=== PATIENT | male | born 1950 | race Caucasian/White ===

== ENCOUNTER → 2020-06-04 13:53 | Outpatient (BNVA) | payer MEDICARE, OTHER, SELFPAY | PROVIDERS: Visit Provider Nurse Practitioner Family | DX: Z20.828 Contact with and (suspected) exposure to other viral communicable diseases (principal); U07.1 COVID-19 | CPT/HCPCS: 87635 ==

== ENCOUNTER → 2020-07-01 15:32 | Outpatient (BNVA) | payer MEDICARE, OTHER, SELFPAY | PROVIDERS: Visit Provider Registered Nurse | DX: I10 Essential (primary) hypertension (principal); E78.5 Hyperlipidemia, unspecified; Z00.00 Encounter for general adult medical examination without abnormal findings | CPT/HCPCS: 80053; 80061; 85025 ==

== ENCOUNTER 2020-08-03 10:33 | Outpatient (CLI) | payer MEDICARE, OTHER, SELFPAY ==
--- NOTE | 2020-08-03 11:00 | US_ITS ---
WS: [id number] ULTRASOUND ABDOMEN CLINICAL INFORMATION: K74.60 - Unspecified cirrhosis of liver COMPARISON: None. FINDINGS: Liver Size: Normal. Craniocaudal length: 14.3 cm. Echogenicity: Coarse Surface nodularity: None. Mass (size and location): None. Bile ducts Intrahepatic ducts: Normal. Common bile duct diameter: 0.4 cm. Gallbladder Normal. Gallstones: None. Gallbladder sludge: None. Gallbladder wall thickening: None. Pericholecystic fluid: None. Sonographic Maddox sign: Absent. Pancreas Not well visualized Right kidney: Normal. Hydronephrosis: None. Size: 10.1 cm x 5.2 cm x 5.5 cm Abdominal aorta and IVC Visualized portions are normal. Ascites: None. US/US liver [id number] IMPRESSION: 1. Diffuse fatty infiltration liver. 2. Normal gallbladder and common bile duct. 3. No hydronephrosis in right kidney.
== END 2020-08-03 10:34 | disposition home or self-care (01) ==
LOC: RAD 10:40
PROVIDERS: Visit Provider Registered Nurse
DX: K74.60 Unspecified cirrhosis of liver (principal); K76.0 Fatty (change of) liver, not elsewhere classified
CPT/HCPCS: 76705

== ENCOUNTER → 2021-09-08 09:46 | Outpatient (BNVA) | payer MEDICARE, OTHER, SELFPAY | PROVIDERS: PCP Registered Nurse; Visit Provider Registered Nurse | DX: Z00.00 Encounter for general adult medical examination without abnormal findings (principal); I10 Essential (primary) hypertension; N40.0 Benign prostatic hyperplasia without lower urinary tract symptoms; K21.9 Gastro-esophageal reflux disease without esophagitis; Z12.5 Encounter for screening for malignant neoplasm of prostate; Z68.27 Body mass index [BMI] 27.0-27.9, adult; Z71.3 Dietary counseling and surveillance; Z71.82 Exercise counseling | CPT/HCPCS: 80053; 80061; 85025; G0103 ==

== ENCOUNTER 2022-10-04 14:49 | Emergency (ER) | payer MEDICARE, OTHER, SELFPAY ==
[2022-10-04 14:56] VITALS: BP 144/89; PULSE 89; RESP 18; O2SAT 97; BMI 26.9
[2022-10-04 15:05] VITALS: RESP 18
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
--- NOTE | 2022-10-04 15:16 | CTR_ITS ---
PROCEDURE INFORMATION: Exam: CT Head Without Contrast Exam date and time: 10/04/2022 3:50 PM Age: 72 years old Clinical indication: Altered mental status/memory loss; Additional info: AMS TECHNIQUE: Imaging protocol: Computed tomography of the head without contrast. Radiation optimization: All CT scans at this facility use at least one of these dose optimization techniques: automated exposure control; mA and/or kV adjustment per patient size (includes targeted exams where dose is matched to clinical indication); or iterative reconstruction. REPORTING DATA: Count of CT and Cardiac NM exams in prior 12 months: This patient has received 0 known CTs and 0 known cardiac nuclear medicine studies in the 12 months prior to the current study. COMPARISON: No relevant prior studies available. RADIATION DOSE METRICS: Total DLP (mGy-cm): 1552.6 FINDINGS: Brain: No hemorrhage. No edema. Moderate diffuse cerebral atrophy. No significant white matter disease. No mass effect. Cerebral ventricles: No ventriculomegaly. Paranasal sinuses: Visualized sinuses are unremarkable. No fluid levels. Mastoid air cells: Visualized mastoid air cells are well aerated. Bones/joints: Unremarkable. No acute fracture. Soft tissues: Unremarkable. CT/CT head wo con* [id number] IMPRESSION: No acute intracranial abnormality.
--- NOTE | 2022-10-04 15:17 | ECG_ITS ---
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 Measurements Intervals [place] Rate: 94 P: 33 NM: 147 QRS: -59 QRSD: 94 T: 41 QT: 364 QTc: 456 Interpretive Statements SINUS RHYTHM S1-S2-S3 PATTERN, CONSISTENT WITH PULMONARY DISEASE, RVH, OR NORMAL VARIANT LEFT ANTERIOR FASCICULAR BLOCK [QRS AXIS <= -45, QR IN I, RS IN II] No previous ECG available for comparison Electronically Signed On 10-04-2022 21:03:00 CDT by Brenda Ann M.D. [id number]
[2022-10-04 16:00] VITALS: RESP 16
[2022-10-04 16:20] LABS: Basophils % 0.4 %; Hematocrit 43.9 % (42.0-52.0); Hemoglobin 14.8 g/dL (11.7-16.6); Lymphocytes # 2.5 10^3/uL (0.8-4.8); Lymphocytes % 46.5 %; Mean Corpuscular HGB Conc 33.7 g/dL (30.0-36.0); Mean Corpuscular Hemoglobin 32.7 pg (28.0-34.0); Mean Corpuscular Volume 97.1 fl (80-94); Monocytes # 0.5 10^3/uL (0.2-0.9); Monocytes % 8.4 %; Neutrophils # 2.43 10^3/uL (1.8-7.7); Neutrophils % 44.5 %; Nucleated Red Blood Cells % 0 %; Platelet Count 118 10^3/cmm (130-400); Red Blood Count 4.52 10^6/uL (4.1-5.3); Red Cell Distribution Width 12.9 % (12.1-15.1); White Blood Count 5.5 10^3/uL (4.0-10.0)
[2022-10-04 16:57] LABS: Alanine Aminotransferase 19 U/L (0-41); Albumin Level 3.9 g/dL (3.5-5.2); Alcohol Level 286 mg/dL (0-10); Alkaline Phosphatase 73 U/L (40-130); Anion Gap 25.9 (5-19); Aspartate Amino Transferase 51 U/L (0-40); Blood Urea Nitrogen 13 mg/dL (8-23); Calcium 8.2 mg/dL (8.5-10.5); Carbon Dioxide 21 mmol/L (22-29); Chloride 99 mmol/L (98-107); Globulin 3.3 g/dL (1.3-4.6); Glucose 68 mg/dL (65-115); Osmolality Calculated 292 mOsm/kg (285-295); Potassium 3.9 mmol/L (3.5-5.1); Sodium 142 mmol/L (136-145); Thyroid Stimulating Hormone 1.23 uIU/mL (0.27-4.20); Total Bilirubin 0.5 mg/dL (0.15-1.2); Total Protein 7.2 g/dL (6.6-8.7); Vitamin B12 1764 pg/mL (232-1245)
[2022-10-04 17:28] LABS: Add Urine Microscopic? NO; Charge for UA Resulting for Rev
[2022-10-04 17:42] LABS: Bilirubin Urine Neg (Negative); Blood Urine Neg (Negative); Glucose Urine UA Norm (Normal); Ketones Urine 3+ (Negative); Leukocyte Esterase Urine Negative (Negative); Nitrate Urine Negative (Negative); Protein Urine Neg (Negative); Urine Appearance Clear (CLEAR); Urine Color Yellow (Yellow); Urobilinogen Urine Neg (Negative); pH Urine 5 (5-7)
[2022-10-04 18:00] VITALS: RESP 18
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
[2022-10-04] MEDS: pantoprazole DR 40 mg Tablet PO (20:04)
[2022-10-04 20:05] LABS: Acetaminophen < 5.0 ug/mL (10-30); Salicylate < 0.3 mg/dL (3-10)
--- NOTE | 2022-10-04 20:17 | PC.NURSE ---
told me that she was going to car to get his medications to give him. Informed her that she could not give him outside medications. She then said well you didn't hear that. I am going out to smoke . Then winked at me. Informed the that if she brings anything in and gives it to him she will be removed from the ER and not allowed back in. I have told her that the ER will give him his evening meds. Verified his Protonix script and order obtained from provider. Sitter notified , provider notified of wifes comment.
[2022-10-04 20:32] LABS: SARS Covid-2 Antigen negative (Negative)
[2022-10-04 22:00] VITALS: BP 139/90; PULSE 104; RESP 18; O2SAT 99
--- NOTE | 2022-10-04 22:12 | PC.NURSE ---
Moe WILSON, tank house operator helper read rights to patient and informed of 96hr hold.
[2022-10-04] MEDS: multivitamin therapeutic Tablet 1 TAB PO (23:45)
[2022-10-05 00:05] LABS: Ammonia 19 umol/L (16-60)
[2022-10-05 06:36] VITALS: BP 157/98; PULSE 86; RESP 16; O2SAT 97
[2022-10-05 07:04] LABS: Alcohol Level < 10 mg/dL (0-10)
[2022-10-05] MEDS: ondansetron 4 MG Tablet PO (10:13)
[2022-10-05 13:58] VITALS: BP 140/79; PULSE 75; RESP 14; O2SAT 96
--- NOTE | 2022-10-05 14:14 | DCPLANNER ---
Addendum entered by Ivonne Coto 10/05/22 15:48: ux manager called [facility] to see if they were able to accept - wrapper caser was told that facility declined due to the patient not meeting their criteria for admission. Original Note: ux manager was asked to look for [facility] placement for patient. ux manager called and faxed patients information to following facilities: [facility] - was faxed earlier - called to get an update - facility declined due to patients alcohol level have to wait 72 hours [facility] - 12:44 - left a voicemail Pito Benitez - to old [facility] - 12:45 - beds available - faxed information at [address] [place] -13:17 - [facility] put on wait list [facility] - 1250 - Theresa left voicemail [facility] - 12:58 - [facility] no beds [facility] - 13:14 - [place] - no beds [facility] - 1315 - [place] - no beds [facility] - 1315- no beds - but was told to fax information - information faxed at [address] [facility] - 1315 - no beds
--- NOTE | 2022-10-05 20:23 | P.NPUPN_ITS ---
Subjective NPU Subjective: Patient presented today reporting that he was feeling better. He began to really backtrack on his answers about questions regarding his drinking. He never confessed to lying but certainly seem to have a much better understanding of how his presentation was looking and concerns about safety. We discussed the importance of us working with his to ensure that everything was safe at home including removing guns and the alcohol in the home. He is somewhat admitted that there were alcohol use issues that might be current. We discussed concerns for confabulation still and the impact of alcohol on aging brain as well as his 's concern for Alzheimer's though an abbreviated MMSE showed him to be completely oriented to person place time and location with precision and no stumbles. We discussed the importance of him discontinuing his alcohol use and seeking follow-up as recommended Mental Status Exam MSE Comments: This is a well-nourished, well-developed white male in hospital scrubs with adequate grooming and eye contact. No abnormal movements except for mild psychomotor retardation. Mostly cooperative with exam in no acute distress. Speech was normal rate and volume with no slurring. Mood described as pretty good, affect mostly euthymic.. Thought process organized. Thought content: Patient denied suicidal or homicidal ideation, there were no delusions reported or noted, he denied any auditory or visual hallucinations. Attention and concentration appeared intact and memory was more reliable but none were formally tested. He is alert and oriented x3. Insight and judgment appear limited and impulse control appears limited. Vitals/I&O/Wt Last Vital Signs Pulse 75 10/05/22 13:58 Resp 14 10/05/22 13:58 BP 140/79 10/05/22 13:58 Pulse Ox 96 10/05/22 13:58 O2 Del Method Room Air 10/05/22 13:58 Weight last 48 hrs Weight 80.286 kg Data NPU 10/04/22 16:10 10/04/22 16:10 A&P Assessment and plan (1) Essential hypertension: (2) Suicidal ideation: (3) Intoxication: (4) Alcohol use disorder, severe, dependence: Plan This is a 72-year-old white male with a long history of alcohol use and some reported history of mental health issues who presents with a blood alcohol of 286 denying recent drinking for the past 2 months with an affidavit from his with concerns for lethality. 1. Continue current medication. 2. Agree that with 2 more days required by anyone who might take patient that waiting for inpatient services appears wasteful. Patient able to contract for safety and is agreeable to take him back and take safety measures as they prepare for following through with referrals. 3. Patient is less resistant to the idea that he drank and created the elevated blood alcohol level and acknowledged that he needs to stop drinking and was going to discontinue drinking and understood his was getting rid of the alcohol in the home. 4. No credible lethality noted and patient more functional and he and his report a plan to follow-up with referrals to assist in his recovery and mental health services needs. He was able to contract for safety outside of the hospital prior to discharge. Attestations NPU Medical Necessity Statement*: N/A. Please see primary team note for medical necessity but agree patient appropriate for outpatient services. Coding Level of Care Code Acute Code for [facility]wd Diagnoses Essential hypertension I10 Suicidal ideation R45.851 Intoxication Alcohol use disorder, severe, dependence F10.20
[2022-10-05 21:28] VITALS: BP 169/91; PULSE 86; RESP 16; O2SAT 99
--- NOTE | 2022-10-06 11:53 | PC.NURSE ---
Patient seen in the ED on 10/05/22 Dr. Horton wanted a referral to [facility]. [facility] attempted to call patient with no answer. Left a voicemail to return call.
== END 2022-10-05 22:53 | disposition home or self-care (01) ==
PROVIDERS: Emergency Medicine; Emergency Provider Family Medicine; PCP Registered Nurse
DX: F10.10 Alcohol abuse, uncomplicated (principal); Z20.822 Contact with and (suspected) exposure to COVID-19; I10 Essential (primary) hypertension
CPT/HCPCS: 36415; 70450; 80053; 80307; 81003; 82140; 82607; 84443; 85025; 87426; 93005; 99285; Q0162; Q3014

== ENCOUNTER → 2024-12-25 15:21 | Outpatient (BNVA) | payer MEDICARE, OTHER, SELFPAY | PROVIDERS: PCP Registered Nurse; Visit Provider Registered Nurse | DX: I10 Essential (primary) hypertension (principal) | CPT/HCPCS: 80053; 80061; 85025 ==

== ENCOUNTER → 2025-01-02 10:29 | Outpatient (BNVA) | payer MEDICARE, OTHER, SELFPAY | PROVIDERS: PCP Registered Nurse; Visit Provider Student in an Organized Health Care Education/Training Program | DX: Z12.11 Encounter for screening for malignant neoplasm of colon (principal) | CPT/HCPCS: 99024; 99203 ==